=== PATIENT | male | born 2000 | race Caucasian/White ===

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

== ENCOUNTER 2025-03-29 07:55 | Observation (INO) ==
--- NOTE | 2025-03-26 09:33 | Anesthesiology Consultation ---
Date of Service March 26, 2025 Assessment & Plan (1) Encounter for pre-operative examination: Chart Review Chart Review: Acceptable Risk for Surgery and Patient NOT seen in Pre Admission Testing -Infectious Disease screening: Per PAT nursing assessment on 03/18/25. No known infectious disease contacts in past 10 days or current infectious disease symptoms. No recent travel outside the country. Removal Of Ulysses Teeth Impacted 06/05/22= Done under GA with Grade 1-2 view with Glidescope #3. ETT #7.5. History Surgery Operation Date: 03/29/25 09:35 Proposed Procedures p LeForte I and Saggital Split, Upper and Lower Jaw Orthognathic Surgery, Place Surgical Splint - Arnoldo Smith DMD Height/Weight Height: 5 ft 10 in Weight: 81.647 kg Allergies Allergy/AdvReac Type Severity Reaction Status Date / Time No Known Allergies Allergy Verified 03/26/25 08:46 Medications Home Medications Medication Instructions Recorded Confirmed Last Taken lamotrigine 100 mg tablet 100 mg PO QAM 04/10/22 03/26/25 06/06/22 dextroamphetamine-amphetamine 20 20 mg PO QAM 02/23/25 03/26/25 Unknown mg tablet (Adderall) propranolol 10 mg tablet 10 mg PO TID 02/23/25 03/26/25 Unknown quetiapine 200 mg tablet,extended 100 mg PO HS 02/23/25 03/26/25 Unknown release 24 hr sertraline 25 mg tablet 25 mg PO QAM 02/23/25 03/26/25 Unknown amoxicillin 875 mg-potassium 1 tab PO Q12H PRN jaw surgery #20 03/26/25 03/26/25 Unknown clavulanate 125 mg tablet tabs chlorhexidine gluconate 0.12 % 15 ml mucous membrane BID jaw 03/26/25 03/26/25 Unknown mouthwash (Peridex) surgery #473 mL hydrocodone 5 mg-acetaminophen 325 1 tab PO Q4H PRN pain #14 tabs 03/26/25 1 05/27/24 Unknown mg tablet ondansetron HCl 8 mg tablet 8 mg PO Q8H PRN nausea and 03/26/25 03/26/25 Unknown vomiting #10 tabs Past Medical History Medical History ADHD Anxiety Depression Hx of migraines Tremor reason for propranolol Past Surgical History Surgical History H/O wisdom tooth extraction (06/07/22) Removal of Ulysses Teeth Impacted #17 and 32, Removal Non Impacted Ulysses Teeth 1 and 16(Bilateral) - Arnoldo Smith, DMD Social History Smoking Status: Never smoker Do You Dip or Chew Tobacco: No Hx Alcohol Use: No Hx Substance Use: Yes substance use type: marijuana Last Used Substance Other:: occasional use Lab Results Anesthesia Preop Results Results Anesthesia Widget: WBC 5.53 K/ul (4.8-10.8) 03/26/25 Hgb 14.6 g/dL (14.0-18.0) 03/26/25 Hct 41.5 % (42.0-52.0) L 03/26/25 Plt 260 K/uL (130-400) 03/26/25 Na 143 mmol/L (136-145) 03/26/25 K 3.7 mmol/L (3.5-5.1) 03/26/25 Cl 108 mmol/L (98-107) H 03/26/25 CO2 27 mmol/L (21-32) 03/26/25 BUN 16 mg/dl (6-23) 03/26/25 Creat 0.82 mg/dl (0.6-1.4) 03/26/25 Glucose Level 148 mg/dl (70-99(Fasting)) H 03/26/25 PT 10.8 Seconds (9.0-12.0) 03/26/25 PTT 30 Seconds (21-31) 03/26/25 INR 1.0 (0.9-1.1) 03/26/25 Blood Type O Negative 03/26/25 Antibody Screen NEGATIVE 03/26/25
--- NOTE | 2025-03-26 10:17 | History & Physical Report ---
Date of Service March 26, 2025 History of Present Illness Primary Care Provider: NO PCP HPI Updated Mar 26, 2025 I had Jt in today for a pre surgical final review I discussed all the risks and he signed the consult Reviewed pre-op/post op instructions and Rx sent to pharmacy Reviewed surgery double jaw, 23 hr observation. Reviewed the custom plates with the Nicolasa gallegos Surgery Mar 29 at 9:35 [facility] Labs pending Reviewed H&P and Physical OK for surgery pending labs. 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 Major Discrepancies: maxillary hypoplasia and severe retrognathic lower jaw, poor dental occlusion lower/upper teeth, narrow upper-skeletal arch form. A-P Retrognathism-- There is a 7 mm retrognathic relationship of the lower to upper jaw Vertical There is a severe almost 100% closed bite with lower teeth impinging on the maxillary palatal gingival tissue Transverse: Transverse discrepancy was corrected with orthodontic- preoperatively Medical Indication For Reconstructive Jaw Surgery Based on the established guidelines from the [place] [employer] the severity of this deformity precludes adequate treatment through dental treatment alone. Medical necessity has been established by the significant deformity and the resulting in Functional impairment in mastication. Inability to close jaws into a normal relationship due to the severe skeletal deformity. Skeletal malocclusion due to the skeletal deformity resulting in a traumatic occlusion Chronic mastication difficulty due to the skeletal deformity. Soft tissue trauma to tongue, lips and cheeks due to the traumatic occlusion. Excessive juan of lower teeth left side Severe class II deep bite with both maxillary and mandibular retrognathia some X ray evaluation: Cephalometric analysis---retrognathic lower jaw of 6-7 mm, dental flaring of lower teeth, retrognathic upper jaw Panorex:---TMJ all WNL, juan of teeth due to skeletal malocclusion. Treatment plan: Obtain CT scan treatment plan and virtual planning for possible maxillary and mandibular advancement to correct the severe skeletal deformity [place] I maxillary advancement with bone graft and sagittal split advancement CPT 04103/31905/[id number] ICD10 M26.04/M26.02 The above mentioned surgical procedure is not being preformed for any type of cosmetic reasons. The patient has a true jaw deformity that is preventing him/her from functioning in a normal manner. The proposed surgery is for functional rehabilitation of the skeletal alignment of the patient`s jaw. Physical Exam Updated Mar 26, 2025 Constitutional WD/WN, vitals as above Eyes PERRL, conjunctivae normal, anicteric sclerae Mouth severe maxillary retrognathia is in with deep bite maxillary anterior posterior and vertical discrepancy lack of lip show due to severe class II deep bite with maxillary vertical deficiency hypoplastic maxilla suggested treatment plan is maxillary advancement and slide down grafting bilateral sagittal split osteotomies for advancement with direct fixation custom jaw surgery using virtual planning and possible custom plating for maxilla and direct fixation of mandibular sagittal split sites. Neck trachea midline, no thyromegaly Thyroid: normal thyroid Respiratory normal respiratory effort, lungs clear to auscultation Auscultation: lungs clear to auscultation bilaterally Cardiovascular RRR, no murmur, no edema Rate/Rhythm: regular rate and regular rhythm Gastrointestinal (Abdomen) normal bowel sounds, soft, nontender, no hepatosplenomegaly Musculoskeletal no cyanosis or clubbing, extremities motor strength 5/5 Skin no rashes, warm and dry Neurologic PERRL, EOMI, accommodation nl, no face palsy, no dysarthria Cranial Nerves: sense of smell intact, PERRL, normal accommodation, EOM intact bilaterally, normal facial strength, tongue midline, normal gag reflex, normal hearing, able to rotate head bilaterally, able to elevate shoulders bilaterally, no nystagmus and symmetric palate elevation Psychiatric A+Ox3, euthymic affect Orientation: cooperative Lymphatic no cervical or axillary lymphadenopathy [facility] Problem List (Updated 02/27/25 @ 10:05 by Arnoldo Smith DMD)Mandibular retrognathismCongenital vertical maxillary hypoplasiaExcessive horizontal overjetPrimary occlusal traumaStatus post wisdom tooth extractionMandibular hypoplasiaDental arch anomaly with reverse articulationNo known health problems (Chronic)Contusion of left clavicle (Acute)Strain of cervical portion of left trapezius muscle (Acute)Tachycardia (Acute)Impacted teeth with abnormal positionDepression reason for Lamictal Medical History (Updated 02/27/25 @ 10:05 by Arnoldo Smith DMD) ADHD No pertinent family history Anxiety Surgical History (Updated 08/19/22 @ 11:43 by Arnoldo Smith DMD) H/O wisdom tooth extraction (06/07/22) No pertinent past surgical history Social History Smoking Status: Never smoker Second Hand Exposure: No; Do You Dip or Chew Tobacco: No; Hx Alcohol Use: No Hx Substance Use: Yes Non-Prescribed Medications: Marijuana Last Used Substance Other:: has stopped using, "couple days ago" Preferred Language: [place]an Communication Ability: Effective Etcher Electrolytic Required: No Beliefs That Will Affect Care: None Current Living Situation: Alone current occupational status: employed How many Children do You have: 0 Feels Safe at Home: Yes during the past year weight has: remained stable Assistive Devices: Glasses Nursing Visit Reasons: EST- Pre surg Conference Allergies No Known Allergies Allergy (Verified 02/23/25 11:05) Medications lamotrigine 100 mg tablet 100 mg PO QAM 04/10/22 [History Confirmed 02/23/25] dextroamphetamine-amphetamine 20 mg tablet (Adderall) 20 mg PO DAILY 02/23/25 [History Confirmed 02/23/25] propranolol 10 mg tablet 10 mg PO TID 02/23/25 [History Confirmed 02/23/25] quetiapine 200 mg tablet,extended release 24 hr 100 mg PO HS 02/23/25 [History Confirmed 02/23/25] sertraline 25 mg tablet 25 mg PO DAILY 02/23/25 [History Confirmed 02/23/25] Coding DiagnosesMandibular hypoplasia M26.04Excessive horizontal overjet M26.23Dental arch anomaly with reverse articulation M26.24Primary occlusal trauma K08.81Congenital vertical maxillary hypoplasia M26.02Mandibular retrognathism M26.19CPT CodesLEFORT I-1 PIECE W/ BONE GRAFT - ([id number])RECONST LWR JAW W/FIXATION - ([id number])PREPARE FACE/ORAL PROSTHESIS - ([id number]) 02/23/2511 Vitals Weight 81.647 kg BP 121/79 Pulse 109 H Review of System Constitutional: Constitutional: no fever, no chills, no sweats, no fatigue, no weight loss and no weight gainEyes: Eyes: no corrective lenses, no diplopia, no decreased night vision, no eye pain, no spots in vision and no problem reported Ear, Nose, Mouth, Throat: Ear, Nose, Mouth, Throat: no ear pain, no hearing loss, no nasal discharge, no sore throat, no hoarseness and no dysphagia Respiratory: Respiratory: no cough, no dyspnea, no dyspnea on exertion, no hemoptysis and no wheezingCardiovascular: Cardiovascular: no chest pain, no palpitations, no lightheadedness, no syncope and no edemaGastrointestinal: Gastrointestinal: no abdominal pain, no belching, no bloating, no heartburn, no nausea, no vomiting, no cramping, no constipation, no diarrhea/loose stools, no fecal incontinence and no blood in stoolsGenitourinary (Male): Genitourinary (Male): no dysuria, no difficulty urinating, no urinary frequency, no urinary incontinence and no hematuriaMusculoskeletal: Musculoskeletal: no back pain, no neck pain, no joint pain and no stiffnessIntegumentary: Integumentary: no boil, no rash, no changing lesions and no dry skinNeurologic: Neurologic: no tingling, no numbness, no seizure-like activity, no dizziness, no syncope, no headache(s) and no memory lossPsychiatric: Psychiatric: no depression, no abnormal sleep pattern, no anxiety and no confusionEndocrine: Endocrine: no polydipsia, no polyphagia, no polyuria, no cold intolerance and no heat intoleranceHematologic / Lymphatic: Hematologic / Lymphatic: no easy bleeding, no easy bruising, no coagulopathy and no lymphadenopathy [facility] Problem List (Updated 03/26/25 @ 09:31 by Jaqueline Nicole PA-C) Encounter for pre-operative examination 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 Surgical History (Updated 03/18/25 @ 09:35 by Montserrat Flores) H/O wisdom tooth extraction (06/07/22) . Social History Smoking Status: Never smoker Second Hand Exposure: No; Do You Dip or Chew Tobacco: No; Tobacco Cessation Education Requested by Patient: No Hx Alcohol Use: No Hx Substance Use: Yes Non-Prescribed Medications: Marijuana Last Used Substance Other:: occasional use Preferred Language: [place]an Communication Ability: Effective Etcher Electrolytic Required: No Beliefs That Will Affect Care: None Current Living Situation: Alone current occupational status: employed How many Children do You have: 0 Other Information That Helps Us Care for You: No Feels Safe at Home: Yes Safety Concerns: Feels Safe At This Time during the past year weight has: remained stable Assistive Devices: Glasses Results Reviewed Results Reviewed Results Common Labs: Potassium 3.5 mmol/L (3.5-5.1) 10/23/20 Sodium 142 mmol/L (136-145) 10/23/20 Chloride 106 mmol/L (98-107) 10/23/20 BUN 16 mg/dl (7-18) 10/23/20 Creatinine 0.86 mg/dl (0.6-1.4) 10/23/20 Carbon Dioxide 30 mmol/L (21-32) 10/23/20 Glucose 92 mg/dl (70-99) 10/23/20 RBC 4.73 M/uL (4.7-6.1) 10/23/20 WBC 8.15 K/uL (4.8-10.8) 10/23/20 Hgb 15.3 g/dL (14.0-18.0) 10/23/20 Hct 44.0 % (42-52) 10/23/20 Plt Count 272 K/uL (130-400) 10/23/20 Nursing Visit Reasons: EST- SURG SATURDAY Allergies No Known Allergies Allergy (Verified 03/26/25 08:46) Medications lamotrigine 100 mg tablet 100 mg PO QAM 04/10/22 [History Confirmed 03/26/25] dextroamphetamine-amphetamine 20 mg tablet (Adderall) 20 mg PO QAM 02/23/25 [History Confirmed 03/26/25] propranolol 10 mg tablet 10 mg PO TID 02/23/25 [History Confirmed 03/26/25] quetiapine 200 mg tablet,extended release 24 hr 100 mg PO HS 02/23/25 [History Confirmed 03/26/25] sertraline 25 mg tablet 25 mg PO QAM 02/23/25 [History Confirmed 03/26/25] amoxicillin 875 mg-potassium clavulanate 125 mg tablet 1 tab PO Q12H PRN jaw surgery #20 tabs 03/26/25 [Rx Confirmed 03/26/25] chlorhexidine gluconate 0.12 % mouthwash (Peridex) 15 ml mucous membrane BID jaw surgery #473 mL 03/26/25 [Rx Confirmed 03/26/25] hydrocodone 5 mg-acetaminophen 325 mg tablet 1 tab PO Q4H PRN pain #14 tabs 03/26/25 [Rx Confirmed 03/26/25] ondansetron HCl 8 mg tablet 8 mg PO Q8H PRN nausea and vomiting #10 tabs 03/26/25 [Rx Confirmed 03/26/25] Allergies Allergy/AdvReac Type Severity Reaction Status Date / Time No Known Allergies Allergy Verified 03/26/25 08:46 Home Medications Medication Instructions Recorded Confirmed Type lamotrigine 100 mg tablet 100 mg PO QAM 04/10/22 03/26/25 History dextroamphetamine-amphetamine 20 20 mg PO QAM 02/23/25 03/26/25 History mg tablet (Adderall) propranolol 10 mg tablet 10 mg PO TID 02/23/25 03/26/25 History quetiapine 200 mg tablet,extended 100 mg PO HS 02/23/25 03/26/25 History release 24 hr sertraline 25 mg tablet 25 mg PO QAM 02/23/25 03/26/25 History amoxicillin 875 mg-potassium 1 tab PO Q12H PRN jaw surgery #20 03/26/25 03/26/25 Rx clavulanate 125 mg tablet tabs chlorhexidine gluconate 0.12 % 15 ml mucous membrane BID jaw 03/26/25 03/26/25 Rx mouthwash (Peridex) surgery #473 mL hydrocodone 5 mg-acetaminophen 325 1 tab PO Q4H PRN pain #14 tabs 03/26/25 03/26/25 Rx mg tablet ondansetron HCl 8 mg tablet 8 mg PO Q8H PRN nausea and 03/26/25 03/26/25 Rx vomiting #10 tabs Past Med/Surg History Problem List Encounter for pre-operative examination 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 Status post wisdom tooth extraction Primary occlusal trauma Impacted teeth with abnormal position 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 Depression reason for lamictal Tachycardia (Acute) Strain of cervical portion of left trapezius muscle (Acute) Contusion of left clavicle (Acute) Medical History Depression Hx of migraines Tremor reason for propranolol ADHD Anxiety Surgical History H/O wisdom tooth extraction (06/07/22) Removal of Evans Teeth Impacted #17 and 32, Removal Non Impacted Evans Teeth 1 and 16(Bilateral) - Arnoldo Smith DMD Social History Smoking Status: Never smoker Second Hand Exposure: No; Do You Dip or Chew Tobacco: No; Tobacco Cessation Education Requested by Patient: No Hx Alcohol Use: No Hx Substance Use: Yes Non-Prescribed Medications: Marijuana Last Used Substance Other:: occasional use Preferred Language: [place]an Communication Ability: Effective Etcher Electrolytic Required: No Beliefs That Will Affect Care: None Current Living Situation: Alone current occupational status: employed How many Children do You have: 0 Other Information That Helps Us Care for You: No Feels Safe at Home: Yes Safety Concerns: Feels Safe At This Time during the past year weight has: remained stable Assistive Devices: Glasses PG Care Time/CCT Total # of Minutes Spent Total Time Spent with Patient: Total time spent is greater than 50% in coordination of care (as documented) at patient's floor/unit and/or counseling patient: Coding Level of Care Code None
[2025-03-29 08:15] LABS: Hematocrit (blood only) 41.6 % (42.0-52.0); Hemoglobin 14.6 g/dL (14.0-18.0); Immature Granulocytes # (auto) 0.01 K/uL (0.01-0.20); Immature Granulocytes % (auto) 0.2 %; Mean Corpuscular Hemoglobin 31.1 pg (25.0-34.0); Mean Corpuscular Volume 88.5 fL (80.0-100.0); Platelet Count 271 K/uL (130-400); RDW Standard Deviation 42.0 fL (36.4-46.3); Red Blood Count 4.70 M/uL (4.70-6.10); White Blood Count 4.94 K/ul (4.8-10.8)
[2025-03-29] MEDS: LACTATED RINGER'S 1,000 ML IV SCH (08:22)
[2025-03-29] MEDS: LR 15ML/HR IV SCH (08:32)
[2025-03-29 08:40] LABS: INR 1.0 (0.9-1.1); Partial Thromboplastin Time 31 Seconds (21-31); Prothrombin Time 11.0 Seconds (9.0-12.0)
[2025-03-29] MEDS ORDERED: MIDAZOLAM HCL 1 MG/ML 2ML VIAL ONE (09:11)
[2025-03-29] MEDS ORDERED: ROCURONIUM BROMIDE 10 MG/ML 5 ML VIAL IV ONE ×3 (09:12→12:36)
[2025-03-29] MEDS ORDERED: PROPOFOL IV EMULSION 10 MG/ML 20 ML VIAL IV ONE (09:12)
[2025-03-29] MEDS ORDERED: DEXAMETHASONE SOD INJ 4 MG/ML VIAL ONE ×2 (09:12)
[2025-03-29] MEDS ORDERED: ONDANSETRON INJ 2 MG/ML 2 ML VIAL ONE ×2 (09:12→13:20)
[2025-03-29] MEDS ORDERED: LIDOCAINE 2% 2 ML VIAL/AMP(20MG/ML) INFIL ONE ×4 (09:12→15:11)
--- NOTE | 2025-03-29 09:56 | History & Physical Bridge Note ---
Date of Service March 29, 2025 History & Physical Bridge Note I have examined the patient, reviewed the History & Physical and in the interval since the performance of the History & Physical I have noted the following changes of clinical significance: no changes noted
[2025-03-29] MEDS ORDERED: OXYMETAZOLINE 0.05% 30 ML BTL ONE (10:03)
[2025-03-29] MEDS ORDERED: DexMEDEtomidine HCL IV 100 MCG/ML VIAL IV ONE (10:31)
[2025-03-29] MEDS ORDERED: HYDROmorphone INJ 2 MG/ML SYR/VIAL ONE ×2 (10:40→14:40)
[2025-03-29] MEDS: TRIAMCINOLONE ACET 0.1% OINT 15 GM TUBE ONE (11:02)
[2025-03-29] MEDS: CHLORHEXIDINE GLUCONATE 0.12% 480 ML MT ONE (11:02)
[2025-03-29] MEDS: BUPIVACAINE/EPINEPHRINE 0.5% 1:200,000 1.8 ML CARP ONE ×3 (11:03→17:21)
[2025-03-29] MEDS ORDERED: ESMOLOL HCL INJ 10 MG/ML 10ML VIAL IV ONE (11:55)
[2025-03-29] MEDS: SURGICEL ABSORB HEMOSTAT 2IN X 14IN TOP ONE (13:10)
[2025-03-29] MEDS ORDERED: SUGAMMADEX SODIUM 200 MG/2 ML VIAL IV ONE (13:20)
[2025-03-29] MEDS ORDERED: METOPROLOL TARTRATE 1 MG/ML VIAL IV ONE ×2 (13:22→17:05)
[2025-03-29] MEDS ORDERED: ceFAZolin 330 MG/ML 1 GM VIAL ONE ×2 (13:58)
[2025-03-29] MEDS ORDERED: SODIUM CHLORIDE 0.9% PF INJ 10 ML VIAL ONE (14:41)
[2025-03-29] MEDS ORDERED: PHENYLEPHRINE 100MCG/ML 5ML SYR ONE ×2 (15:53)
[2025-03-29] MEDS ORDERED: DROPERIDOL 5 MG/2 ML VIAL ONE (16:01)
[2025-03-29] MEDS ORDERED: PHENYLEPHRINE HCL 10 MG/ML VIAL ONE (17:06)
[2025-03-29] MEDS ORDERED: LORazepam Inj 1 MG in SYRINGE 0.5 ML IV PRN (17:57)
[2025-03-29] MEDS ORDERED: HYDROcodone/APAP 7.5/325mg/15mL ELIX 15 ML/CUP PO PRN ×2 (17:57)
[2025-03-29] MEDS ORDERED: OXYMETAZOLINE 0.05% 30 ML BTL PRN (17:57)
[2025-03-29] MEDS ORDERED: ACETAMINOPHEN SUSP 325 MG/10.15 ML UDC PO PRN (17:57)
[2025-03-29] MEDS ORDERED: ONDANSETRON INJ 2 MG/ML 2 ML VIAL IV PRN ×2 (17:57→17:58)
[2025-03-29] MEDS ORDERED: ATROPINE SULFATE 0.1 MG/ML 10ML SYR IV PRN (17:58)
[2025-03-29] MEDS ORDERED: PROMETHAZINE HCL 6.25 MG in SODIUM CHLORIDE 0.9% 50 ML IV PRN (17:58)
[2025-03-29] MEDS ORDERED: HYDROmorphone INJ 2 MG/ML SYR/VIAL IV PRN (17:58)
--- NOTE | 2025-03-29 18:07 | Post Operative Brief Note ---
PG Immediate Post Op with CF Date of Surgery March 29, 2025 Pre & Post Diagnosis Operation Date: 03/29/25 09:35 Pre-Op Diagnosis: Mandibular Hypoplasia, Congenital Vertical Maxilla Post-Op Diagnosis: Mandibular Hypoplasia, Congenital Vertical Maxilla I identified the patient and participated in the time-out.: Yes Procedure Operation Date: 03/29/25 09:35 Actual Procedures p LeForte I and Saggital Split, Upper and Lower Jaw Orthognathic Surgery, Place Surgical Splint(Not Applicable) - Arnoldo Smith DMD Surgeon Arnoldo Smith, ROSA ISELA Bicycle Mechanic none Estimated Blood Loss 200 Findings Consistent with Post-Op Diagnosis Retrognathic lower/upper jaws Specimens Specimen Description: No specimen per surgeon Anesthesia Type General Complications Very thick and dense bone Disposition Accompanied Patient To Recovery: Yes
--- NOTE | 2025-03-29 20:00 | XRay Report ---
Exam: X-ray mandible Reason for exam: Postop mandible. Previous studies: CT facial bones 03/05/2025 FINDINGS: Since the previous study surgery has been performed with multiple plates and screws now present in the mandible and maxilla. Prior fixation of the dentition is seen. IMPRESSION: Status post facial surgery. Electronically signed by Wiley Stone 03-29-2025 7:58 PM
[2025-03-29] MEDS: PROPRANOLOL HCL 10 MG TAB PO SCH (20:10)
[2025-03-29] MEDS: KETOROLAC 30 MG/ML VIAL IV SCH (20:10)
[2025-03-29] MEDS: dexAMETHasone 6 MG in SYRINGE 0 ML IV SCH (20:10)
[2025-03-29] MEDS: CHLORHEXIDINE GLUCONATE 0.12% 480 ML MT SCH (20:17)
[2025-03-29] MEDS: TRIAMCINOLONE ACET 0.1% OINT 15 GM TUBE EXT SCH (20:21)
[2025-03-29] MEDS: D5W AND 1/2NSS + 20MEQ KCL 20 MEQ/1,000 ML BAG IV SCH (20:22)
--- NOTE | 2025-03-29 20:33 | Anesthesiology Progress Note ---
Date of Service March 29, 2025 Anesthesia Post Procedure Vital Signs Vital Signs: Temp Pulse Pulse Resp BP BP Pulse Ox 03/29/25 19:52 36.6 C 101 H 18 118/76 98 03/29/25 19:26 36.6 C 98 H 16 129/76 95 03/29/25 19:00 36.7 C 110 H 18 120/75 90 03/29/25 18:40 36.9 C 109 H 15 109/78 93 03/29/25 18:30 117 H 13 142/74 H 92 03/29/25 18:20 106 H 13 133/76 93 03/29/25 18:10 117 H 11 L 122/84 94 03/29/25 18:00 111 H 15 137/78 94 03/29/25 17:50 116 H 10 L 130/81 94 03/29/25 17:44 36.5 C 108 H 15 137/77 94 03/29/25 08:17 37.2 C 82 18 115/83 99 O2 Del Method O2 Flow Rate 03/29/25 19:52 Nasal Cannula 2 03/29/25 19:26 Nasal Cannula 2 03/29/25 19:00 Room Air 03/29/25 18:40 Room Air 03/29/25 18:30 Room Air 03/29/25 18:20 Room Air 03/29/25 18:10 Oxymask 2 03/29/25 18:00 Oxymask 3 03/29/25 17:50 Oxymask 5 03/29/25 17:44 Oxymask 5 03/29/25 08:17 Room Air Transfer of Care Handoff Completed per policy Notes Mental Status: alert / awake / arousable and participated in evaluation Patient Amnestic to Procedure: Yes Nausea / Vomiting: adequately controlled Pain: adequately controlled Airway Patency, RR, SpO2: stable & adequate BP & HR: stable & adequate Hydration State: stable & adequate Anesthetic Complications: no major complications apparent and Pt Satisfied with anesthetic care Notes: Patient with mild tachycardia. He does take propranolol TID and had not taken any today. He was given dose of IV metoprolol during procedure.
--- NOTE | 2025-03-30 07:21 | Operative Report ---
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, Congenital Vertical Maxilla I identified the patient and participated in the time-out.: Yes Procedure Operation Date: 03/29/25 09:35 Actual Procedures p LeForte I and Saggital Split, Upper and Lower Jaw Orthognathic Surgery, Place Surgical Splint(Not Applicable) - Arnoldo Smith DMD Surgeon Arnoldo Smith, ROSA ISELA Sausage Canner none Estimated Blood Loss 200 Findings Consistent with Post-Op Diagnosis Specimens none Drains none Anesthesia Type General Complications very thick and dense bone requiring more time to preform the surgery Disposition Accompanied Patient To Recovery: Yes Indications severe dentofacial deformity Description of Procedure Post Operative Report Pre-Op Diagnosis: Maxillary Hypoplasia , 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 After adequate anesthesia was obtained, the patient was prepped and draped in the usual manner for a mandibularsagittal osteotomy and LeFort I advancement. The patient had a class II occlusionwith deviation to the right and maxillary/mandibleretrognathism as well as Vertical deficiency with canting this was a complex deformity in 3 D Atime out was taken for patient ID, antibiotics, equipment and position verification once all agreed the procedure began.After the facial area was draped with the appropriate sterile technique, local anesthesia was infiltrated into themandibular maxillarytissues to allow for hemostasis with local anesthetic effect. After an adequate period of time to allow for the hemostasis and local anesthetic effect, an oropharyngeal throat pack was placed, the oral cavity was irrigated and suctioned dried with Peridex mouth rinse. At this time, the appropriate time outsto verify the patient, position, type of surgery, antibio tics and equipment once everyone agreed we then started the operative procedure. Since that was a double jaw procedure the plan was to start with the lower jaw but not complete the cuts then complete the upper and then return to the lower for the completion of the bilateral sagittal splints. Right side sagittal split phase I Using an electrocautery instrument, an incision approximately 1.5 cm in length was made in the external oblique region on theright side. The tissue was reflected to expose the bone. Once the bone was reflected; I had good visualization of the inferior border of the mandible, the angle of the mandible, the lingual aspect of the mandible and the nerve as it entered the mandibular foramen. Now with a fiber optic retractor I was able to hold the lingual tissue out of the way and had good visualization of the lingual cortical plate and the nerve entrance into the bone. With the large round elan, I was able to remove the spinous processes of the external oblique ridge. Now using a reciprocating saw, an osteotomy was made parallel to the occlusion plane of the mandibular molar teeth approximately 1-2 mm above the nerve. I then used the spear point Palm elan very carefully to make a trough in the external oblique ridge from the previously made osteotomy to an area between the 1st and 2nd molars. I now continued the osteotomy parallel to the long axis of the lower molarsinferiorly to the inferior border of the mandible, taking great care to avoid any trauma to the neurovascular bundle and to ensure that I cut through the cortical plate into the marrow vascular channel. The area was packed and the left side was now addressed. Left side sagittal split phase I Using an electrocautery instrument, an incision approximately 1.5 cm in length was made in the external oblique region on the left side. The tissue was reflected to expose the bone. Once the bone was reflected; I had good visualization of the inferior border of the mandible, the angle of the mandible, the lingual aspect of the mandible and the nerve as it entered the mandibular foramen. Now with a fiber optic retractor I was able to hold the lingual tissue out of the way and had good visualization of the lingual cortical plate and the nerve entrance into the bone. With the large round elan, I was able to remove the spinous processes of the external oblique ridge. Now using a reciprocating saw, an osteotomy was made parallel to the occlusion plane of the mandibular molar teeth approximately 1-2 mm above the nerve. I then used the spear point Palm elan very carefully to make a trough in the external oblique ridge from the previously made osteotomy to an area between the 1st and 2nd molars. I now continued the osteotomy parallel to the long axis of the lower molarsinferiorly to the inferior border of the mandible, taking great care to avoid any trauma to the neurovascular bundle and to ensure that I cut through the cortical plate into the marrow vascular channel. The area was packed and I now turned my attention to the maxilla. The bone was extremely dense with a limited marrow space as complained to the right side. LeFort I osteotomy: I turned my attention now to the maxilla. On the preoperative evaluation, the maxilla needed to be [id number] with a slight rotation to line up the midlines. To accomplish this, a Le Fort I maxillary osteotomy was carried out. An electrocautery instrument was used to make an incision from the 1st bicuspid area on the right side across the midline to the opposite bicuspid area. The tissues reflected in the usual manner to expose the mucoperiosteal tissue and to get good exposure of the anterior nasal spine, the roots of the maxillary anterior and posterior teeth and the piriform rim. Once this was reflected, I was able to then reflect posteriorly to get good access to the pterygoid plate areas. I then spent a lot of time dissecting around the nasal bones to ensure that we had good visualization of the floor of the nose and the piriform rims. At this time, the custom surgical guides were placed with an excellent fit. They were secured with small fixation screw, I ensured that the cuts will be made to avoid any anatomic structures. Before starting the bone cuts since the bone plates were also custom made I pre-drilled the holes to be used later in the fixation process. At this time, a retractor was placed intranasal and I made an osteotomy parallel to the occlusal plane from the piriform rim posteriorly to the tuberosity region. I then completed a similar osteotomy on the left side of the maxilla. Once this was done, a curved osteotome was used to osteotomize the pterygoid plate from the tuberosity region of both right and left sides. A ball curved osteotome was used to osteotomize the medial cameron of the maxillary sinus. I now used a straight osteotome with a protective edge to osteotomize the nasal septal tissue. I now removed the surgical guides. Once this was done, I was able to reflect all the nasal mucoperiosteal tissue of the floor of the nose. By doing this, the maxilla was quite easily down fractured. The down fracture occurred without any problems. I was able to preserve then neurovascular bundle posteriorly on the right side and left side .With great deal of blunt and sharp dissection as well as removing a lot of bony interferences, I was able to make the maxilla very passive. The maxilla was repositioned and leveled as per the surgical plan. I then irrigated the maxillary sinuses of any debris and/or polyps that were noted. Hemostasis was in good control. I made sure that the maxilla was quite passive. The preformed surgical appliance, the interim splint was applied to the mandible and the maxilla was easily seated into the split and the maxillary mandibular complex was then rotated superiorly. I noted that the maxilla was now positioned in its new position the hemostasis was in control and all bony margins were passive. At this time, the maxillary mandibular complex was superiorly repositioned. Great care was taken to make sure that the condyles were well seated within the glenoid fossa. Being satisfied with this, I placed the preformed custom titanium fixation plates. The plates were passive and lined up with the previously made holes, I then used a titanium screw and obtained direct fixation. Once this was accomplished, I now removed the fixation wires and the intermediate splint. I noted that the maxilla was extremely stable and the occlusion was reproducible. The maxilla was now stable and in ideal post-surgical position. As a result of the gaps and 3-D movement I needed to bone graft the maxilla with an alloplastic sponge like bone graft material. I carefully fitted the bone grafts into the right/left lateral and posterior gaps and wedged them into place--they were stable and well positioned.I turned my attention to the mandible to complete the osteotomies. Splitting right side With the use of a bone power operator and a small osteotome, I was able to complete the sagittal split of the right mandibular ramus. Great care was taken to avoid any trauma to the neurovascular bundle. The nerve was not traumatized and was in excellent position. I did a lot of bone reduction to allow for the mandible to be passively positioned without any pressure on the nerve or pressure that could cause distortion of the mandibular condyle. Hemostasis was in excellent control. It was noted that there were few small bony interferences that trimmed with the use ofrongeurs and rotary instrument. Once this was accomplished I packed the side with a gauze sponge to prevent any pressure on the nerve and to control bleeding. At this time, I turned my attention to the left side. Splitting left side With the use of a bone power operator and a small osteotome, I was attempted to complete the sagittal split of the leftmandibular ramus. The left side was extremely dense thick bone with a limited marrow space. The lateral bone was also somewhat bowed out . Trying to achieve the sagittal split was very difficult on the left side as compared to the right. I needed to do a lot more bone cutting given the density of the bone. I used the Sonopet ultrasound scalpel to carefully cut the bone and attempting to avoid any trauma to the inferior alveolar nerve. Great care was taken to avoid any trauma to the neurovascular bundle as I had to mobilize the nerve to free it as it was adherent to the to the condyle section of the bone (proximal). Due to the lack of marrow space and the density of the lateral cortex I noted that a greenstick fracture was starting to develop in the lateral cortex. I immediately stopped use the some the PET again to complete the osteotomy. A good sagittal osteotomy was achieved and I will address the lateral greenstick fracture at the time of repositioning the fragment. The soft tissue was reflected off the advancing fragment with the use of a J periosteal elevators. The patient needed a large advancement over 10 mm on the right on the left side due to his significant retrognathia some. Given the excessive manipulation of the fragment due to his density and anatomy I am concerned about the effect on the inferior alveolar nerve. I did a lot of bone reduction to allow for the mandible to be passively positioned without any pressure on the nerve or pressure that could cause distortion of the mandibular condyle. Hemostasis was in excellent control. It was noted that there were few small bony interferences that trimmed with the use ofrongeurs and rotary instrument. Once this was accomplished I packed the side with a gauze sponge to prevent any pressure on the nerve and to control bleeding. Establishing the occlusion Because of the large lateral movement a lot more bone adjustment was needed to gain passive segment relationship. Once the right and left sides were completely cut and the soft tissue was reflected to allow repositioning the final occlusal splint was applied to the mandible and the mandibular complex with the splint was easily rotated and held into position and stabilized with 25 gauge stainless steel wires to the maxilla. Once both sides were split and the segments were layingpassively over each other, the osteotomy site was then trimmed to ensure that there were no bony interferences. I irrigated the areas with normal saline, I made sure that the neurovascular bundles were intact and positioned correctly and that hemostasis was in excellent control. Applying Direct osseous fixation Right side--I used a small clasp, placed between the two fragments and noted that the fragments were seating extremely passively over each other. I did some further trimming to ensure that there was no pressure on the nerve and to ensure that the condyle waswell seated. Being satisfied with this, I passed an 11 blade through the cheek, a trocar was placed and then interosseous holes were placed above the neurovascular bundle, but below the external oblique ridge for direct osseous fixation of the right mandibular fragment. Given that there was almost a 10 mm advancement on this side I was able to achieve excellent stability with the use of 3 long fixation screws. The bone was extremely dense and we had solid fixation of the right side.Now direct osseous fixation of the right mandibular fragment was completed. Left side--I used a small clasp, placed between the two fragments and noted that the fragments were seating extremely passivelyover each other. I did some further trimming to ensure that there was no pressure on the nerve and to ensure that the condyle waswell seated. Being satisfied with this, I passed an 11 bladethrough the cheek, a trocar was placed and then 3interosseous holes were placed above and below the neurovascular bundle. To address the greenstick fracture on the superior edge of the left lateral bone I placed an L shaped bone plate and secured it with both bicortical and monocortical screws. The additional screws and bone plates on the left side stabilized the osteotomy site. I now checked both osteotomy sites and found them to be extremely stable. At this time, the temporary intermaxillary fixation was removed. The occlusion was extremely stable and reproducible. The patient had a good range of motion without clicks or pops or deviations. The sites were irrigated and checked for bleeding. I inspected the lingual aspects to make sure that the screws did not perforate the lingual cortical plate--were necessary the screws were adjusted to insure a flush fit. Closure lower I turned my attention first to the right side; with the use of a 4-0 Vicryl suture, I was able to suture the osteotomy site. Once this was accomplished, we turned our attention to the left side and a similar suturing technique was carried out. Using a 6-0 nylon suture 2 skin sutures in each cheek site was used to close the skin. Closure upper The nasal septum was trimmed to help prevent buckling--the septum to the new midline. Before closure of the upper the area was irrigated, hemostasis was controlled. To ensure proper closure with good anatomical form, I was able to grasp the alar cartilages on both the right and left side and then using a 3-0 Mersilene suture, I was able to perform an alar cinch technique to ensure good positioning of the lateralalar cartilages of the nose and to establish good base anatomy of the nose. Once this was done, I made sure that the nasal septum was well positioned in the midline. Being satisfied with this, I then began the V-Y closure of the mucosal tissue starting in the midline and then closed laterally on either side to ensure an even contouring of the tissue. When all w as said and done, we had excellent closure of the soft tissue with great support of the nose. 2 dental elastics were applied in the cupid areas to allow for functional elastic stability. I now placed an elastic face bandage to maintain pressure to the face Recovery The patient was allowed to recover in the usual manner. A check to insure all instrument and sponge count was correct was accomplished and verified the oral cavity was suctioned and Ipassed an oral gastric tube. When fully recovered, extubation occurred. All vital signs were extremely stable. Now the anesthesia department transferred the patient to the hospital litter to betaken to the recovery room. I am very pleased with the osteotomy sites, the positioning of the nerve, and the functional improvement that was gained by the osteotomy. I attest to the content of the Intraoperative Record and any orders documented therein. Any exceptions are noted below.
[2025-03-30] MEDS: MoRPHine SULFATE 4 MG/ML 1 ML CARP\\VIAL IV PRN (08:25)
[2025-03-30] MEDS ORDERED: MoRPHine SULFATE 2 MG/ML CARP IV PRN (08:36)
[2025-03-30 12:18] VITALS: RESP 18; TEMP 97.3
--- NOTE | 2025-03-30 12:42 | Progress Note ---
Date of Service March 30, 2025 Assessment & Plan Admission and Anticipated Discharge Date Admission Date: March 29, 2025 Subjective Orthognathic surgery post op note at 18 hours Excellent result, doing amazing ROM improving Sutures in place Tissue tone, gingival tissue--excellent Occlusion very stable with a reproducible bite. No nasal congestion or bleeding, septum well positioned. No sinus issues Facial alignment excellent swelling of lips as expected Overall swelling better than expected Reviewed post op care--diet, oral care, use of elastics, activities. I will meet with family this afternoon at 4:30 and plan D/C later Overall excellent result from recent OG surgery I will plan D/C after 4:30 once I meet with family later today Results & Data Vital Signs (Past 12 Hours) Vital Signs Temp Pulse Resp BP Pulse Ox O2 Del Method 03/30/25 12:17 36.3 C L 81 18 119/82 95 Room Air 03/30/25 09:19 36.4 C L 95 H 17 112/74 95 Room Air 03/30/25 07:00 36.6 C 94 H 18 122/85 97 Room Air 03/30/25 03:00 36.7 C 93 H 18 124/82 98 Room Air PG Care Time/CCT Total # of Minutes Spent Total Time Spent with Patient: Total time spent is greater than 50% in coordination of care (as documented) at patient's floor/unit and/or counseling patient: Coding Level of Care Code None
[2025-03-30 15:49] VITALS: BP 114/82; PULSE 83; O2SAT 100
--- NOTE | 2025-03-30 16:58 | Discharge Summary ---
Date of Service March 30, 2025 Admission HPI Per Admitting Provider HPI Updated Mar 26, 2025 I had Jt in today for a pre surgical final review I discussed all the risks and he signed the consult Reviewed pre-op/post op instructions and Rx sent to pharmacy Reviewed surgery double jaw, 23 hr observation. Reviewed the custom plates with the [facility] Surgery Mar 29 at 9:35 [facility] OR Labs pending Reviewed H&P and Physical OK for surgery pending labs. 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 Major Discrepancies: maxillary hypoplasia and severe retrognathic lower jaw, poor dental occlusion lower/upper teeth, narrow upper-skeletal arch form. A-P Retrognathism-- There is a 7 mm retrognathic relationship of the lower to upper jaw Vertical There is a severe almost 100% closed bite with lower teeth impinging on the maxillary palatal gingival tissue Transverse: Transverse discrepancy was corrected with orthodontic- preoperatively Medical Indication For Reconstructive Jaw Surgery Based on the established guidelines from the [place] [employer] the severity of this deformity precludes adequate treatment through dental treatment alone. Medical necessity has been established by the significant deformity and the resulting in Functional impairment in mastication. Inability to close jaws into a normal relationship due to the severe skeletal deformity. Skeletal malocclusion due to the skeletal deformity resulting in a traumatic occlusion Chronic mastication difficulty due to the skeletal deformity. Soft tissue trauma to tongue, lips and cheeks due to the traumatic occlusion. Excessive juan of lower teeth left side Severe class II deep bite with both maxillary and mandibular retrognathia some X ray evaluation: Cephalometric analysis---retrognathic lower jaw of 6-7 mm, dental flaring of lower teeth, retrognathic upper jaw Panorex:---TMJ all WNL, juan of teeth due to skeletal malocclusion. Treatment plan: Obtain CT scan treatment plan and virtual planning for possible maxillary and mandibular advancement to correct the severe skeletal deformity [place] I maxillary advancement with bone graft and sagittal split advancement CPT 24448/37988/74579 ICD10 M26.04/M26.02 The above mentioned surgical procedure is not being preformed for any type of cosmetic reasons. The patient has a true jaw deformity that is preventing him/her from functioning in a normal manner. The proposed surgery is for functional rehabilitation of the skeletal alignment of the patient`s jaw. Physical Exam Updated Mar 26, 2025 Constitutional WD/WN, vitals as above Eyes PERRL, conjunctivae normal, anicteric sclerae Mouth severe maxillary retrognathia is in with deep bite maxillary anterior posterior and vertical discrepancy lack of lip show due to severe class II deep bite with maxillary vertical deficiency hypoplastic maxilla suggested treatment plan is maxillary advancement and slide down grafting bilateral sagittal split osteotomies for advancement with direct fixation custom jaw surgery using virtual planning and possible custom plating for maxilla and direct fixation of mandibular sagittal split sites. Neck trachea midline, no thyromegaly Thyroid: normal thyroid Respiratory normal respiratory effort, lungs clear to auscultation Auscultation: lungs clear to auscultation bilaterally Cardiovascular RRR, no murmur, no edema Rate/Rhythm: regular rate and regular rhythm Gastrointestinal (Abdomen) normal bowel sounds, soft, nontender, no hepatos plenomegaly Musculoskeletal no cyanosis or clubbing, extremities motor strength 5/5 Skin no rashes, warm and dry Neurologic PERRL, EOMI, accommodation nl, no face palsy, no dysarthria Cranial Nerves: sense of smell intact, PERRL, normal accommodation, EOM intact bilaterally, normal facial strength, tongue midline, normal gag reflex, normal hearing, able to rotate head bilaterally, able to elevate shoulders bilaterally, no nystagmus and symmetric palate elevation Psychiatric A+Ox3, euthymic affect Orientation: cooperative Lymphatic no cervical or axillary lymphadenopathy [facility] Problem List (Updated 02/27/25 @ 10:05 by Arnoldo Smith DMD)Mandibular retrognathismCongenital vertical maxillary hypoplasiaExcessive horizontal overjetPrimary occlusal traumaStatus post wisdom tooth extractionMandibular hypoplasiaDental arch anomaly with reverse articulationNo known health problems (Chronic)Contusion of left clavicle (Acute)Strain of cervical portion of left trapezius muscle (Acute)Tachycardia (Acute)Impacted teeth with abnormal positionDepression reason for Lamictal Medical History (Updated 02/27/25 @ 10:05 by Arnoldo Smith DMD) ADHD No pertinent family history Anxiety Surgical History (Updated 08/19/22 @ 11:43 by Arnoldo Smith DMD) H/O wisdom tooth extraction (06/07/22) No pertinent past surgical history Social History Smoking Status: Never smoker Second Hand Exposure: No; Do You Dip or Chew Tobacco: No; Hx Alcohol Use: No Hx Substance Use: Yes Non-Prescribed Medications: Marijuana Last Used Substance Other:: has stopped using, "couple days ago" Preferred Language: [place] Communication Ability: Effective Entry Level Programmer Required: No Beliefs That Will Affect Care: None Current Living Situation: Alone current occupational status: employed How many Children do You have: 0 Feels Safe at Home: Yes during the past year weight has: remained stable Assistive Devices: Glasses Nursing Visit Reasons: EST- Pre surg Conference Allergies No Known Allergies Allergy (Verified 02/23/25 11:05) Medications lamotrigine 100 mg tablet 100 mg PO QAM 04/10/22 [History Confirmed 02/23/25] dextroamphetamine-amphetamine 20 mg tablet (Adderall) 20 mg PO DAILY 02/23/25 [History Confirmed 02/23/25] propranolol 10 mg tablet 10 mg PO TID 02/23/25 [History Confirmed 02/23/25] quetiapine 200 mg tablet,extended release 24 hr 100 mg PO HS 02/23/25 [History Confirmed 02/23/25] sertraline 25 mg tablet 25 mg PO DAILY 02/23/25 [History Confirmed 02/23/25] Coding DiagnosesMandibular hypoplasia M26.04Excessive horizontal overjet M26.23Dental arch anomaly with reverse articulation M26.24Primary occlusal trauma K08.81Congenital vertical maxillary hypoplasia M26.02Mandibular retrognathism M26.19CPT CodesLEFORT I-1 PIECE W/ BONE GRAFT - ([id number])RECONST LWR JAW W/FIXATION - ([id number])PREPARE FACE/ORAL PROSTHESIS - ([id number]) 02/23/2511 Vitals Weight 81.647 kg BP 121/79 Pulse 109 H Review of System Constitutional: Constitutional: no fever, no chills, no sweats, no fatigue, no weight loss and no weight gainEyes: Eyes: no corrective lenses, no diplopia, no decreased night vision, no eye pain, no spots in vision and no problem reported Ear, Nose, Mouth, Throat: Ear, Nose, Mouth, Throat: no ear pain, no hearing loss, no nasal discharge, no sore throat, no hoarseness and no dysphagia Respiratory: Respiratory: no cough, no dyspnea, no dyspnea on exertion, no hemoptysis and no wheezingCardiovascular: Cardiovascular: no chest pain, no palpitations, no lightheadedness, no syncope and no edemaGastrointestinal: Gastrointestinal: no abdominal pain, no belching, no bloating, no heartburn, no nausea, no vomiting, no cramping, no constipation, no diarrhea/loose stools, no fecal incontinence and no blood in stoolsGenitourinary (Male): Genitourinary (Male): no dysuria, no difficulty urinating, no urinary frequency, no urinary incontinence and no hematuriaMusculoskeletal: Musculoskeletal: no back pain, no neck pain, no joint pain and no stiffnessIntegumentary: Integumentary: no boil, no rash, no changing lesions and no dry skinNeurologic: Neurologic: no tingling, no numbness, no seizure-like activity, no dizziness, no syncope, no headache(s) and no memory lossPsychiatric: Psychiatric: no depression, no abnormal sleep pattern, no anxiety and no confusionEndocrine: Endocrine: no polydipsia, no polyphagia, no polyuria, no cold intolerance and no heat intoleranceHematologic / Lymphatic: Hematologic / Lymphatic: no easy bleeding, no easy bruising, no coagulopathy and no lymphadenopathy [facility] Problem List (Updated 03/26/25 @ 09:31 by Jaqueline Nicole PA-C) Encounter for pre-operative examination 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 Surgical History (Updated 03/18/25 @ 09:35 by Montserrat Flores) H/O wisdom tooth extraction (06/07/22) . Social History Smoking Status: Never smoker Second Hand Exposure: No; Do You Dip or Chew Tobacco: No; Tobacco Cessation Education Requested by Patient: No Hx Alcohol Use: No Hx Substance Use: Yes Non-Prescribed Medications: Marijuana Last Used Substance Other:: occasional use Preferred Language: [place] Communication Ability: Effective Entry Level Programmer Required: No Beliefs That Will Affect Care: None Current Living Situation: Alone current occupational status: employed How many Children do You have: 0 Other Information That Helps Us Care for You: No Feels Safe at Home: Yes Safety Concerns: Feels Safe At This Time during the past year weight has: remained stable Assistive Devices: Glasses Results Reviewed Results Reviewed Results Common Labs: Potassium 3.5 mmol/L (3.5-5.1) 10/23/20 Sodium 142 mmol/L (136-145) 10/23/20 Chloride 106 mmol/L (98-107) 10/23/20 BUN 16 mg/dl (7-18) 10/23/20 Creatinine 0.86 mg/dl (0.6-1.4) 10/23/20 Carbon Dioxide 30 mmol/L (21-32) 10/23/20 Glucose 92 mg/dl (70-99) 10/23/20 RBC 4.73 M/uL (4.7-6.1) 10/23/20 WBC 8.15 K/uL (4.8-10.8) 10/23/20 Hgb 15.3 g/dL (14.0-18.0) 10/23/20 Hct 44.0 % (42-52) 10/23/20 Plt Count 272 K/uL (130-400) 10/23/20 Nursing Visit Reasons: EST- SURG SATURDAY Allergies No Known Allergies Allergy (Verified 03/26/25 08:46) Medications lamotrigine 100 mg tablet 100 mg PO QAM 04/10/22 [History Confirmed 03/26/25] dextroamphetamine-amphetamine 20 mg tablet (Adderall) 20 mg PO QAM 02/23/25 [History Confirmed 03/26/25] propranolol 10 mg tablet 10 mg PO TID 02/23/25 [History Confirmed 03/26/25] quetiapine 200 mg tablet,extended release 24 hr 100 mg PO HS 02/23/25 [History Confirmed 03/26/25] sertraline 25 mg tablet 25 mg PO QAM 02/23/25 [History Confirmed 03/26/25] amoxicillin 875 mg-potassium clavulanate 125 mg tablet 1 tab PO Q12H PRN jaw surgery #20 tabs 03/26/25 [Rx Confirmed 03/26/25] chlorhexidine gluconate 0.12 % mouthwash (Peridex) 15 ml mucous membrane BID jaw surgery #473 mL 03/26/25 [Rx Confirmed 03/26/25] hydrocodone 5 mg-acetaminophen 325 mg tablet 1 tab PO Q4H PRN pain #14 tabs 03/26/25 [Rx Confirmed 03/26/25] ondansetron HCl 8 mg tablet 8 mg PO Q8H PRN nausea and vomiting #10 tabs 03/26/25 [Rx Confirmed 03/26/25] Specialty Data Pediatrics Double jaw surgery Discharge Data Procedures Performed Operation Date: 03/29/25 09:35 Actual Procedures p LeForte I and Saggital Split, Upper and Lower Jaw Orthognathic Surgery, Place Surgical Splint(Not Applicable) - Arnoldo Smith DMD Hospital Course (1) Mandibular retrognathism: (2) Congenital vertical maxillary hypoplasia: (3) Status post wisdom tooth extraction: (4) Primary occlusal trauma: (5) Impacted teeth with abnormal position: (6) Mandibular hypoplasia: (7) Dental arch anomaly with reverse articulation: (8) Excessive horizontal overjet: (9) Depression: Plan OK for discharge today Doing very well Orthognathic surgery post op note at 24 hours post and post op note Excellent result, ROM improving Sutures in place Tissue tone, gingival tissue--excellent Occlusion very stable with a reproducible bite. No TMJ issues-pain, nose, pop. Reviewed use of functional elastics No nasal congestion or bleeding, septum well positioned. No sinus issues Facial alignment excellent Reviewed post op care--diet, oral care, use of elastics, activities. 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
[2025-03-31] MEDS ORDERED: CHLORHEXIDINE GLUCONATE 0.12% 480 ML MT PRN (11:27)
--- NOTE | 2025-03-31 11:27 | Oral/Maxillofacial Consult ---
Date of Consultation March 31, 2025 History of Present Illness Attending Physician: Arnoldo Smith DMD History of Present Illness was readmitted for N/V and anxiety early this AM Not able to sleep, N/V anxiety-now doing better. I suggest we keep him overnight and I will see him tomorrow AM No N/V over last few hours. Plan Ice. Peridex rinse Cleat liquids only Bed rest Decadron IV IV antibiotics From a surgical point of view doing well-swelling resolving and jaw position stable. Occlusion right on Allergies Allergy/AdvReac Type Severity Reaction Status Date / Time No Known Allergies Allergy Verified 03/29/25 08:02 Home Medications Medication Instructions Recorded Confirmed Type lamotrigine 100 mg tablet 100 mg PO QAM 04/10/22 03/31/25 History propranolol 10 mg tablet 10 mg PO TID 02/23/25 03/31/25 History sertraline 25 mg tablet 25 mg PO QAM 02/23/25 03/31/25 History chlorhexidine gluconate 0.12 % 15 ml mucous membrane BID jaw 03/26/25 03/31/25 Rx mouthwash (Peridex) surgery #473 mL hydrocodone 5 mg-acetaminophen 325 1 tab PO Q4H PRN pain #14 tabs 03/26/25 03/31/25 Rx mg tablet ondansetron HCl 8 mg tablet 8 mg PO Q8H PRN nausea and 03/26/25 03/31/25 Rx vomiting #10 tabs amoxicillin 875 mg-potassium 1 tab PO Q12H jaw surgery 03/31/25 03/31/25 History clavulanate 125 mg tablet dextroamphetamine-amphetamine ER 20 mg PO QAM 03/31/25 03/31/25 History 10 mg 24hr capsule,extend release quetiapine 50 mg tablet,extended 100 mg PO HS 03/31/25 03/31/25 History release 24 hr Patient History Medical History (Updated 03/31/25 @ 03:16 by Araceli Mei PA-C) Depression Hx of migraines Tremor reason for propranolol ADHD Anxiety Surgical History (Updated 03/30/25 @ 08:06 by Kita Augustine RN) H/O jaw surgery (03/29/25) LeForte I and Saggital Split, Upper and Lower Jaw Orthognathic Surgery, Place Surgical Splint - Arnoldo Smith DMD H/O wisdom tooth extraction (06/07/22) Removal of [place] Teeth Impacted #17 and 32, Removal Non Impacted [place] Teeth 1 and 16(Bilateral) - Arnoldo Smith DMD Social History Smoking Status: Never smoker Second Hand Exposure: No; Do You Dip or Chew Tobacco: No; Hx Alcohol Use: No Hx Substance Use: Yes Non-Prescribed Medications: Marijuana Last Used Substance Other:: occasional use Preferred Language: Monegasque Communication Ability: Effective Beamster Required: No Beliefs That Will Affect Care: None Current Living Situation: Alone Current Living Situation Comment: apartment current occupational status: employed How many Children do You have: 0 Feels Safe at Home: Yes Safety Concerns: Feels Safe At This Time during the past year weight has: remained stable Assistive Devices: Glasses PG Care Time/CCT Total # of Minutes Spent Total Time Spent with Patient: Total time spent is greater than 50% in coordination of care (as documented) at patient's floor/unit and/or counseling patient: Coding Level of Care Code None
[2025-03-31] MEDS ORDERED: dexAMETHasone**PF** 10 MG/ML VIAL IV ONE (11:29)
== END 2025-03-30 17:50 | disposition home or self-care (01) ==
LOC: ASU 07:55 → 3W 07:55